=== PATIENT | male | born 1975 | race Two or more races ===

== ENCOUNTER 2023-10-25 13:00 | Emergency (ER) | payer OTHER | END 2023-10-25 15:06 | disposition home or self-care (01) | LOC: MW.ED 13:00 | DX: R51.9 Headache, unspecified (principal); M54.50 Low back pain, unspecified; V59.50XA Passenger in pick-up truck or van injured in collision with unspecified motor vehicles in traffic accident, initial encounter; Y92.410 Unspecified street and highway as the place of occurrence of the external cause; Z75.8 Other problems related to medical facilities and other health care | CPT/HCPCS: 70450; 70450-26; 72125; 72125-26; 72128; 72128-26; 72131; 72131-26; 99283; 99284 ==